=== PATIENT | male | born 1950 | race Caucasian/White ===

== ENCOUNTER 2021-05-15 07:38 | Day surgery (SDC) | payer MEDICARE, OTHER ==
[~2021-05-15] VITALS: Ht 182.9 cm; Wt 99.0 kg
[~2021-05-15 07:38] MED LIST: ASPIR-TRIN325 MG PO; COZAAR25 MG PO; CRESTOR10 MG PO; LEVOXYL125 MCG PO; LOVASTATIN10 MG PO; ONE DAILY FOR1 EAC2 PO
--- NOTE | 2021-05-15 09:49 | NUR ---
05/15/21 0949 Annika Rojas 0941 PATIENT ARRIVES TO PACU RESTING WITH EYES CLOSED. RESPONDS TO VERBAL STIMULI. RESP EVEN AND UNLABORED, NC AT 3 LITERS 0948 PATIENT REPOSITIONS SELF TO BACK. HOB ELEVATED. DRINKING JUICE. CONTINUES TO DENY PAIN OR NAUSEA.
--- NOTE | 2021-05-16 09:44 | OR ---
[facility] [address] [place], [place] [address] Signed DATE OF OPERATION: 05/15/2021 SURGEON: Aneudy Banks MD PREOPERATIVE DIAGNOSES: 1. History of adenomatous colonic polyp in 2011 at age 60. 2. History of hyperplastic colonic polyp in 2016 at age 65. POSTOPERATIVE DIAGNOSES: 1. 4 mm polyp at 16 cm (rectum). 2. Minimal external hemorrhoids. PROCEDURE: Colonoscopy with hot biopsy. ESTIMATED BLOOD LOSS: None. INDICATIONS: Owen is a 70-year-old gentleman who returns for his followup colonoscopy. He had initial colonoscopy back in 2010 at age 60. He had an adenomatous polyp removed at that time. Then in 2016 at the age of 65, he had a hyperplastic polyp removed. He did well with Versed and fentanyl on both occasions. He has no family history of colon cancer or polyps. He has no lower GI complaints. In the office, I gave him a pamphlet on colonoscopy. He remembers the test quite well. There is risk including, but not limited to gas bloating, crampy abdominal pain, bleeding, perforation requiring surgery, and missed diagnosis. He also remembered the need for IV conscious sedation. He expressed understanding and wished to proceed. PROCEDURE NOTE: John was taken into our endoscopy suite and placed in the left lateral decubitus position. He was given 5 mg of Versed and 100 mcg fentanyl to cover the case. A digital rectal exam was performed. He did have some small external hemorrhoid tissue. He had good sphincter tone. After this, the adult colonoscope was introduced and advanced all around into the cecum under direct visualization of camera without difficulty. His prep was quite excellent. We could easily see the appendiceal orifice and the ileocecal valve. The scope was then slowly withdrawn. We took pictures throughout for photodocumentation. There were no diverticula noted. No colon polyps. He had a tiny 4 mm polyp at the top of his rectum at 16 cm. It was easily removed with hot biopsy forceps. Upon retroflexion of scope, there was no additional pathology noted Electronically Signed By: ANEUDY BANKS MD 05/16/21 0944 PATIENT NAME: OWEN COLINDRES OPERATIVE REPORT DATE OF : 48 REPORT #: [id number] PHYSICIAN: ANEUDY BANKS MD PCP: ALIYAH GARLAND MD REPORT IS CONFIDENTIAL AND NOT TO BE RELEASED WITHOUT AUTHORIZATION [facility] [address] [place] [id number] Signed above the anal canal. After this, the gas was suctioned out and the colonoscope removed. Owen tolerated procedure quite well. RECOMMENDATIONS: I will see Owen in my office in 7 to 14 days to review his results. He will likely stay on the 5-year plan. Aneudy Banks MD ALB/MODL /[id number] cc: MD Aneudy Greer MD Copies: ALIYAH GARLAND DMD, ANDREW L MD ~ Electronically Signed By: ANEUDY BANKS MD 05/16/21 0944 PATIENT NAME: OWEN COLINDRES NIKO OPERATIVE REPORT DATE OF : 48 REPORT #: [id number] PHYSICIAN: ANEUDY BANKS MD PCP: ALIYAH GARLAND MD REPORT IS CONFIDENTIAL AND NOT TO BE RELEASED WITHOUT AUTHORIZATION
--- NOTE | 2021-05-16 14:01 | PATH ---
[facility] [address] [place], [place] [address] Signed SPECIMEN(S): A COLON POLYP AT 16 CM SPECIMEN SOURCE: A. COLON POLYP AT 16 CM CLINICAL HISTORY: Pre: Follow-up history of polyps. Post: External hemorrhoids, rectal polyp MICROSCOPIC DESCRIPTION: Histologic sections of all submitted blocks are examined by light microscopy. These findings, together with the gross examination, support the pathologic diagnosis. FINAL PATHOLOGIC DIAGNOSIS: Colon, 16 cm, polypectomy: - Hyperplastic polyp. BRP:cml:C2NR GROSS DESCRIPTION: The specimen, labeled "DARON, colon polyp at 16 cm," is received in formalin and consists of one singletary soft tissue fragment that measures 0.2 cm in greatest dimension. The specimen is entirely submitted in cassette (A1). JS (under the direct supervision of a pathologist) The Gross Description was prepared using a voice recognition system. The report was reviewed for accuracy; however, sound-alike word errors, addition and/or deletions may occur. If there is any question about this report, please contact Client Services. PERFORMING LABORATORY: The technical component was performed by [email or web address], [address] [place] [id number] (Donor Services Technician: Donna Khalil MD; CLIA# [id number]). [facility], [address] [address] (CLIA# [id number]). Diagnostician: Vincent Dalal MD Pathologist Electronically Signed 05/16/2021 Copies: PATIENT NAME: WAYLON COLINDRES PATHOLOGY DATE OF : 48 REPORT #: [id number] PHYSICIAN: [facility] PCP: ALIYAH GARLAND MD REPORT IS CONFIDENTIAL AND NOT TO BE RELEASED WITHOUT AUTHORIZATION [address] [address] Signed ~ PATIENT NAME: WAYLON COLINDRES PATHOLOGY DATE OF : 48 REPORT #: [id number] PHYSICIAN: [facility] PCP: ALIYAH GARLAND MD REPORT IS CONFIDENTIAL AND NOT TO BE RELEASED WITHOUT AUTHORIZATION
== END 2021-05-15 10:10 | disposition home or self-care (01) ==
LOC: OPS 07:38 → DS 07:38 → OPS 09:00 → DS 09:00 → OPS 10:10
PROVIDERS: ATTEND Colon & Rectal Surgery
PROC: 0DBP8ZX Excision of Rectum, Via Natural or Artificial Opening Endoscopic, Diagnostic (ICD-10-PCS; principal; 2021-05-15 09:00)
DX: Z12.11 Encounter for screening for malignant neoplasm of colon (principal); K62.1 Rectal polyp; E78.00 Pure hypercholesterolemia, unspecified; E03.9 Hypothyroidism, unspecified; Z87.19 Personal history of other diseases of the digestive system; Z87.891 Personal history of nicotine dependence; Z88.0 Allergy status to penicillin
CPT/HCPCS: 99153; G0500; J2250; J3010; J7121

== ENCOUNTER 2024-07-05 09:20 | Day surgery (SDC) | payer MEDICARE, OTHER ==
[2024-06-01 16:26] VITALS: BP 135/65
[2024-07-05] VITALS (7 sets, daily range): BP systolic 125–153; BP diastolic 63–96
[~2024-07-05] VITALS: Ht 182.9 cm; Wt 105.0 kg
[~2024-07-05 09:20] MED LIST changes: +CEFAZOLIN SODIUM 2 GM/20 ML SYR IV SCH; -COZAAR25 MG PO; +COZAAR50 MG PO; +FINASTERIDE5 MG PO; +IBLOOD GLUCOSE TEST STRIP 1 EA TEST VI PRN; +LACTATED RINGER'S 1,000 ML IV SCH; +LIDOCAINE HCL 1% 5 ML SDV INJ ONE; +LOW DOSE ASPIRI81 MG PO; +ROSUVASTATIN CA10 MG PO; +TAMSULOSIN HCL0.4 MG PO
[2024-07-05 11:16] LABS: BILIRUBIN, URINE NEGATIVE (negative); BLOOD/HGB, URINE NEGATIVE (Negative); KETONE, URINE NEGATIVE (Negative); LEUK ESTERASE, URINE NEGATIVE (negative); NITRITE, URINE NEGATIVE (negative); PH, URINE 5.5 (5-7)
--- NOTE | 2024-07-05 12:02 | NUR ---
ANSWERED PT CALL LIGHT FOR NEED TO URINE VOID. THIS RN STANDBY ASSIST W/PT TO RESTROOM. GAIT STEADY. PT BACK TO BED, WARM BLANKETS PROVIDED. PT STATES NO FURTHER NEEDS OR QUESTIONS AT THIS TIME. CALL LIGHT WITHIN REACH.
--- NOTE | 2024-07-05 12:35 | NUR ---
IN PT ROOM FOR UPDATE. LET PT KNOW PREVIOUS SURGERY IS COMPLETE AND DR/ANESTHESIA WILL BE IN TO TALK WITH HIM SHORTLY. PT STATES VERBAL UNDERSTANDING AND NO FURTHER QUESTIONS/NEEDS AT THIS TIME.
[2024-07-05] MEDS ORDERED: HYDROmorphone HCL 1 MG/ML SYR IV PRN (13:00)
[2024-07-05] MEDS ORDERED: OXYCODONE/APAP 5/325 TAB PO PRN (13:00)
[2024-07-05] MEDS ORDERED: ondansetron HCL 4 MG/2 ML VIAL IV PRN ×2 (13:00→15:30)
[2024-07-05] MEDS ORDERED: diphenhydrAMINE HCL 25 MG CAP PO PRN (13:00)
[2024-07-05] MEDS ORDERED: HYDROCODONE/ACETA 5/325 TAB PO PRN (13:00)
[2024-07-05] MEDS ORDERED: LACTATED RINGER'S 1,000 ML IV SCH (13:00)
[2024-07-05] MEDS ORDERED: DEXAMETHASONE SOD PHOS 4 MG/ML VIAL ONE (13:09)
[2024-07-05] MEDS ORDERED: propofoL 200 MG/20 ML VIAL ONE ×2 (13:09→14:36)
[2024-07-05] MEDS ORDERED: fentaNYL citrate 100 MCG/2 ML VIAL ONE (13:09)
[2024-07-05] MEDS ORDERED: BUPIVACAINE 0.75% IN DEXTROSE 2 ML AMP ONE (13:09)
[2024-07-05] MEDS ORDERED: MIDAZOLAM HCL 2 MG/2 ML VIAL ONE (13:09)
[2024-07-05] MEDS ORDERED: LIDOCAINE HCL 2% 5 ML SDV ONE (13:10)
[2024-07-05] MEDS ORDERED: IBLOOD GLUCOSE TEST STRIP 1 EA TEST VI PRN (15:30)
[2024-07-05] MEDS ORDERED: fentaNYL citrate 50 MCG/ML SDV IV PRN (15:30)
[2024-07-05] MEDS ORDERED: NALOXONE HCL 0.4 MG SYR IV PRN (15:30)
--- NOTE | 2024-07-05 17:32 | NUR ---
PT TO FLOOR WITH ABIGAIL AGUILA. PT AWAKE BUT STILL NUMB (L2). CBI SLOW DRIP WITH ALMOST CLEAR URINE. FAMILY IN ROOM. DINNER ORDERED. DENIES PAIN.
--- NOTE | 2024-07-05 17:42 | NUR ---
07/05/24 1742 Lauren Cid 1546 PT ARRIVED IN PACU AWAKE WITH NO C/O'S. CBI RUNNING WITH LIGHT PINK DRAINAGE IN FLEMING. EMPTIED 550ML ON ARRIVAL FROM FLEMING. 1600 RESTING. REU. 1615 AWAKE AND TALKING TO STAFF. NO NEEDS AT THIS TIME. 1630 GLASSES RETURNED TO PT. 1646 PT DC'D FROM PACU AND TRANSFERRED TO PHASE II IN PACU WHILE WAITING FOR BED ON MED SURG.
--- NOTE | 2024-07-05 19:03 | NUR ---
PT SITTING UP IN BED VISITINGWITH FAMILY. DENIES PAIN. STARTED LR.
--- NOTE | 2024-07-05 19:33 | NUR ---
RECEIVED REPORT FROM DAY SHIFT RN. PATIENT IS RESTING IN BED WATCHING TV. PATIENTS CBI IS CLAMPED. IV INFUSING PER ORDER. PATIENT DENIES ANY NEEDS. CALL LIGHT IN REACH.
--- NOTE | 2024-07-05 20:38 | NUR ---
PATIENT IS RESTING IN BED READING A BOOK. PATIENTS VITALS TAKEN AND RECORDED. FLEMING EMPTIED AND FLEMING CARE COMPLETED. PATIENTS INTAKE AND OUTPUT RECORDED. PATIENTS IV INFUSING PER ORDER. PATIENT DENIES ANY PAIN OR NAUSEA. PATIENT IS ON RA. SCDS AND CPOX IN USE. PATIENT DENIES ANY NEEDS. CALL LIGTH IN REACH.
--- NOTE | 2024-07-05 22:11 | NUR ---
PATIENTS POST OP VITALS COMPLETED. PATIENTS FLEMING CONTINUES TO DRAIN CLEAR YELLOW URINE. CBI REMAINS CLAMPED. IV INFUSING PER ORDER. PATIENT DENIES ANY PAIN OR NAUSEA. SCDS IN USE. PATIENT DENIES ANY NEEDS. CALL LIGHT IN REACH.
[2024-07-06] VITALS (7 sets, daily range): BP systolic 132–148; BP diastolic 70–92
--- NOTE | 2024-07-06 | NUR ---
PATIENT IS RESTING IN BED WITH EYES CLOSED, CPOX READINGS ARE WNL. NAD NOTED. CALL LIGHT IN REACH. IV INFUSING PER ORDER.
--- NOTE | 2024-07-06 01:00 | NUR ---
PATIENT REPORTS 6/10 PAIN IN "PENIS", PRN PAIN MEDICATIN GIVEN PER ORDER. PATIENT ASSISTED TO REPOSITION IN BED. PATIENTS VITALS TAKEN AND RECORDED. FLEMING EMPTIED. INTAKE AND OUTPUT RECORDED. SCDS IN USE. IV INFUSING PER ORDER. FRESH ICE WATER PROVIDED. PATIENT DENIES ANY FURTHER NEEDS. CALL LIGHT IN REACH.
--- NOTE | 2024-07-06 02:34 | NUR ---
PATIENT IS RESTING IN BED WITH EYES CLOSED, CPOX READINGS ARE WNL. PATIENTS IV INFUSING PER ORDER. IV INFUSING PER ORDER.
--- NOTE | 2024-07-06 04:06 | NUR ---
PATIENT IS RESTING IN BED WITH EYES CLOSED, CPOX READINGS ARE WNL. CALL LIGHT IN REACH. IV INFUSING PER ORDER.
--- NOTE | 2024-07-06 06:34 | NUR ---
PATIENT IS RESTING IN BED WATCHING TV. PATIENTS FLEMING EMPTIED. INTAKE AND OUTPUT RECORDED. PATIENTS VITALS TAKEN AND RECORDED. PATIENT DENIES ANY PAIN. IV INFUSING PER ORDER. PATIENT PROVIDED FRESH ICE WATER. PATIENT DENIES ANY FURTHER NEEDS. CALL LIGHT IN REACH.
--- NOTE | 2024-07-06 07:35 | NUR ---
UR CLINICAL REVIEW: 2 MN FOR [facility] SHORT STAY GUIDELINES POST TURP MEDICARE EXTENDED STAY 07/05/24 @ 1304 ORDER MATCHES REG NO AUTH REQUIRED PER MEDICARE GUIDELINES DISCHARGE TO HOME 07/06/24 WHEN STABLE 07/07/24
--- NOTE | 2024-07-06 08:37 | NUR ---
PATIENT IN BED AT THIS TIME. SKOOG OPERATOR WENT INTO PATIENTS ROOM FOR HOURLY ROUNDS. CALL LIGHT WITHIN REACH, NO FURTHER NEEDS AT THIS TIME.
[2024-07-06] MEDS ORDERED: LOSARTAN POTASSIUM 50 MG TAB PO SCH (09:00)
[2024-07-06] MEDS ORDERED: LEVOTHYROXINE SODIUM 125 MCG TAB PO SCH (09:00)
[2024-07-06] MEDS ORDERED: CEFTRIAXONE/SODIUM CHLORIDE 1 GM/100 ML PIGGYBACK IV SCH (09:00)
[2024-07-06] MEDS ORDERED: LEVOFLOXACIN500 MG PO (09:07)
[2024-07-06] MEDS ORDERED: OXYCODONE HCL5 MG PO (09:08)
[2024-07-06] MEDS ORDERED: FLOMAX0.4 MG PO (09:47)
--- NOTE | 2024-07-06 10:02 | NUR ---
MED REC COMPLETE
--- NOTE | 2024-07-08 10:46 | PATH ---
[facility] [address] [place], [place] [address] Signed SPECIMEN(S): A PROSTATE CHIPS SPECIMEN SOURCE: A. PROSTATE CHIPS CLINICAL HISTORY: Pre: BPH with LUTS, post: TURP FINAL PATHOLOGIC DIAGNOSIS: Prostate, TURP: - Benign nodular hyperplasia (23 grams). - Mild chronic prostatitis. DWS:mlai MICROSCOPIC EXAMINATION: Histologic sections of all submitted blocks are examined by light microscopy. These findings, together with the gross examination, support the pathologic diagnosis. GROSS DESCRIPTION: The specimen, labeled and designated "Salazar Colindres, " and designated on the requisition "prostate chips," is received in formalin is a 23 g, 7.5 x 7.5 x 1.2 cm aggregate of pink-singletary to dalton rubbery soft tissue. Approximately 60% the specimen is submitted in (A1-A10). FB (under the direct supervision of a pathologist) The Gross Description was prepared using a voice recognition system. The report was reviewed for accuracy; however, sound-alike word errors, addition and/or deletions may occur. If there is any question about this report, please contact Client Services. PERFORMING LABORATORY: Technical component was performed by [facility], [address] [place] [id number] (CLIA# [id number]). Professional interpretation was performed by [facility], [address] [place] [id number] (CLIA#: [id number]). Diagnostician: Rui Malone MD Pathologist Electronically Signed 07/08/2024 PATIENT NAME: WAYLON COLINDRES PATHOLOGY DATE OF : 48 REPORT #: [id number] PHYSICIAN: [facility] PCP: ALIYAH GARLAND MD REPORT IS CONFIDENTIAL AND NOT TO BE RELEASED WITHOUT AUTHORIZATION [address] [place], [place] [address] Signed Copies: ~ PATIENT NAME: WAYLON COLINDRES PATHOLOGY DATE OF : 48 REPORT #: [id number] PHYSICIAN: [facility] PCP: ALIYAH GARLAND MD REPORT IS CONFIDENTIAL AND NOT TO BE RELEASED WITHOUT AUTHORIZATION
== END 2024-07-06 10:47 | disposition home or self-care (01) ==
LOC: DS 09:20 → OPS 09:20 → MS 17:08 → OPS 07-06 10:47
PROVIDERS: ATTEND Urology
PROC: 0VB07ZZ Excision of Prostate, Via Natural or Artificial Opening (ICD-10-PCS; principal; 2024-07-05 11:30)
DX: N40.3 Nodular prostate with lower urinary tract symptoms (principal); N40.1 Benign prostatic hyperplasia with lower urinary tract symptoms; N13.8 Other obstructive and reflux uropathy; R31.0 Gross hematuria; N41.1 Chronic prostatitis; I10 Essential (primary) hypertension; E03.9 Hypothyroidism, unspecified; Z79.899 Other long term (current) drug therapy; Z79.890 Hormone replacement therapy; Z79.82 Long term (current) use of aspirin; Z87.891 Personal history of nicotine dependence; Z88.0 Allergy status to penicillin
CPT/HCPCS: 00914; 51700; 81003; 88305; C1769; J0690; J0696; J1100; J2003; J2250; J2704; J3010; J7121

== ENCOUNTER 2025-05-13 07:26 | Day surgery (SDC) | payer MEDICARE, OTHER ==
[~2025-05-13] VITALS: Ht 182.9 cm; Wt 102.0 kg
[~2025-05-13 07:26] MED LIST changes: +CEFAZOLIN SODIUM 2 GM in SODIUM CHLORIDE 0.9% 100 ML IV SCH; -CEFAZOLIN SODIUM 2 GM/20 ML SYR IV SCH; +FLOMAX0.4 MG PO; +LEVOFLOXACIN500 MG PO; +OXYCODONE HCL5 MG PO
[2025-05-13 07:48] VITALS: BP 132/69
[2025-05-13] MEDS ORDERED: LIDOCAINE HCL 0.5% 50 ML SDV ONE (08:04)
[2025-05-13] MEDS ORDERED: KETOROLAC TROMETHAMINE 30 MG/ML VIAL ONE (08:10)
[2025-05-13] MEDS ORDERED: MIDAZOLAM HCL 2 MG/2 ML VIAL ONE (08:12)
[2025-05-13] MEDS ORDERED: fentaNYL citrate 100 MCG/2 ML VIAL ONE (08:12)
[2025-05-13] MEDS ORDERED: HYDROCODONE/ACETA 5/325 TAB PO PRN (08:30)
[2025-05-13] MEDS ORDERED: HYDROCODON-ACE1 EA10 PO (09:02)
--- NOTE | 2025-05-13 09:14 | NUR ---
05/13/25 0914 Lu Rice 0904: PT ARRIVED TO PACU VIA STRETCHER. PT AWAKE AND RESPONSIVE. PT HAS NO COMPLAINTS OF PAIN OR NAUSEA AT THIS TIME. DRESSING TO PATIENT LEFT WRIST C/D/I. PT HAS GOOD CAP REFILL. 0910: PT HAS NO COMPLAINTS OF PAIN OR NAUSEA. DRESSING REMAINS C/D/I. PT REMAINS ON RA AT THIS TIME.
[2025-05-13 09:45] VITALS: BP 117/83
--- NOTE | 2025-05-16 08:35 | OR ---
[facility] [address] [place], [place] [address] Signed DATE OF OPERATION: 05/13/2025 SURGEON: Yuly Lam MD PREOPERATIVE DIAGNOSIS: Carpal tunnel syndrome, left. POSTOPERATIVE DIAGNOSIS: Carpal tunnel syndrome, left. PROCEDURE PERFORMED: Carpal tunnel release, left. SENIOR UI UX DESIGNER: None. ANESTHESIA: [place] block. TOURNIQUET TIME: 20 minutes. BRIEF HISTORY: Owen is a 74-year-old gentleman with pain and numbness in the hand. He had undergone nerve conduction studies which showed significant carpal tunnel. Risks and benefits of operative treatment were discussed with him and he elected to proceed. DESCRIPTION OF PROCEDURE: Once consent was obtained, he was taken to the operating room. After adequate anesthesia, he was left on the day surgery bed, hand table was brought in and the arm was prepped and draped in a standard sterile fashion. The carpal tunnel was approached through a 1.5 cm incision in the distal wrist crease. This was carried through skin and subcutaneous tissue. Transverse carpal ligament was identified, retracted and protected. The transverse carpal ligament was identified under loupe magnification was dissected free of overlying soft tissue proximally and distally, was then released using tenotomy scissors approximately a cm and distally to the distal extent again under direct loupe magnification. This was then palpated using a [place] and found to be completely released. Wound was copiously irrigated with normal saline, closed with 3-0 nylon and injected with 7 mL of 0.25% plain Marcaine. Wound was then dressed with bacitracin, Adaptic 4 x 8s, Electronically Signed By: YULY LAM MD 05/16/25 0835 PATIENT NAME: OWEN COLINDRES OPERATIVE REPORT DATE OF : 48 REPORT #: [id number] PHYSICIAN: YULY LAM MD PCP: ALIYAH GARLAND MD REPORT IS CONFIDENTIAL AND NOT TO BE RELEASED WITHOUT AUTHORIZATION [facility] [address] [facility] [place] [place] [address] Signed and gauze. He tolerated the procedure well. All sponge, needle, and instrument counts were correct. Yuly Lam MD BA/LUIS ARMANDOL /[id number] Copies: ~ Electronically Signed By: YULY LAM MD 05/16/25 0835 PATIENT NAME: OWEN COLINDRES OPERATIVE REPORT DATE OF : 48 REPORT #: [id number] PHYSICIAN: YULY LAM MD PCP: GILL,ALIYAH G MD REPORT IS CONFIDENTIAL AND NOT TO BE RELEASED WITHOUT AUTHORIZATION
== END 2025-05-13 09:40 | disposition home or self-care (01) ==
LOC: DS 07:26
PROVIDERS: ATTEND Specialist
PROC: 01N50ZZ Release Median Nerve, Open Approach (ICD-10-PCS; principal; 2025-05-13 08:55)
DX: G56.03 Carpal tunnel syndrome, bilateral upper limbs (principal); I10 Essential (primary) hypertension; E78.00 Pure hypercholesterolemia, unspecified; E03.9 Hypothyroidism, unspecified; Z79.890 Hormone replacement therapy; Z79.899 Other long term (current) drug therapy; Z88.0 Allergy status to penicillin; Z87.891 Personal history of nicotine dependence
CPT/HCPCS: J0688; J1885; J2250; J3010; J7121